=== PATIENT | male | born 1990 | race Caucasian/White ===

== ENCOUNTER 2016-08-27 16:42 | Emergency (ER) | payer BC ==
[~2016-08-27] VITALS: Ht 162.6 cm; Wt 65.1 kg
[2016-08-27 16:47] VITALS: BP 118/72; PULSE 64; TEMP 36.5; O2SAT 98; Ht 162.6 cm; Wt 65.1 kg
[2016-08-27] MEDS ORDERED: CETI1SYP22 PO (16:48)
[2016-08-27] MEDS ORDERED: ANTIHISTAMINE OPB (16:48)
[2016-08-27] MEDS ORDERED: DEXAMETHASONE SOD INJ 4 MG/ML VIAL IV STA (17:01)
--- NOTE | 2016-08-27 17:53 | EMERGENCY ROOM VISIT NOTE ---
ED Visit Note First contact with patient: 16:52 CHIEF COMPLAINT: Skin rash HISTORY OF PRESENT ILLNESS: This 26-year-old male patient presents to the emergency department and states they have had swelling and redness and a rash for the last 3 days. The rash itches quite a bit. He does remember weed whacking the day before the rash started. He has tried calamine lotion and Benadryl with minimal relief. He has had poison alma in the past, and says this is similar, but more severe. He thinks that his forearms or swelling from the rash. No fever and no URI symptoms. No shortness of breath. No involvement of the mouth, ears, nose, or eyes. REVIEW OF SYSTEMS: A 6 system review of systems was completed with positives and pertinent negatives listed in the HPI. ALLERGIES: No known drug allergies MEDICATIONS: None PMH: Otherwise healthy SOCIAL HISTORY: He does not smoke. He denies drinking alcohol. He lives at home with his . PHYSICAL EXAM: Vital Signs: See nurses' notes, vital signs stable. GENERAL: 26- year-old male, in mild discomfort, well developed, well nourished. SKIN: There are several linear patches of erythematous lesions, some with small vesicles particularly on the trunk and the forearms. The forearms are slightly red and appear slightly swollen. Range of motion is intact. Distal pulses are intact.. The lips, throat, nose, ears, and eyeballs are not involved. No signs of infection. There is no respiratory distress or cough. ED COURSE: The patient was seen and examined. He was given 1 dose of Decadron 10 mg IM. Discharge directions were reviewed, and the patient was discharged in good condition DIAGNOSIS: Rheus dermatitis DISCHARGE INSTRUCTIONS & TREATMENT: Please take prednisone as directed Please continue to take Benadryl 50 mg every 8 hours as needed for continued itching relief Applying cold compresses may help with the pain and itching Avoid getting overheated. No hot showers Please follow up with your primary care physician within one week for recheck Please return to the emergency department with any new or worsening symptoms, especially worsening rash spreading to the face or involving the eyes.
[2016-08-27] MEDS ORDERED: PRED50TA PO (17:54)
== END 2016-08-27 18:23 | disposition home or self-care (01) ==
LOC: C.EDB 16:44 → C.EDD 18:23
DX: L30.9 Dermatitis, unspecified (principal)